=== PATIENT | male | born 1960 | race African-American/Black ===

== ENCOUNTER 2018-10-22 16:47 | Emergency (ER) | payer OTHER, MEDICAID ==
[~2018-10-22] VITALS: Ht 175.3 cm; Wt 72.6 kg
== END 2018-10-23 03:27 | disposition expired ==
LOC: ER 16:47
DX: I46.9 Cardiac arrest, cause unspecified (principal)
CPT/HCPCS: 31500; 36415; 36556; 84484; 92950; 99291